=== PATIENT | male | born 1980 | race Caucasian/White ===

== ENCOUNTER 2019-06-22 08:24 | Emergency (ER) | payer OTHER, SELFPAY ==
--- NOTE | 2019-06-22 08:27 | XR_ITS ---
WS: [id number] XR knee LT 3V* 19897 REASON FOR EXAM: pain FINDINGS: The meniscal spaces are normal. The patella femoral articulation normal. The patella tibial space is normal. There is no fractures seen no soft tissue swelling noted. No unusual calcifications are noted. XR/XR knee LT 3V* [id number] IMPRESSION: Negative left knee.
[2019-06-22 08:32] VITALS: BP 155/93; PULSE 80; RESP 18; TEMP 36.5; O2SAT 99; BMI 24.3
--- NOTE | 2019-06-22 08:37 | ED_ITS ---
HPI - Extremity Injury (Lower) General: Chief Complaint: Extremity Injury, Lower Stated Complaint: LEFT KNEE PAIN Time Seen by Provider: 06/22/19 08:28 Source: patient Mode of arrival: ambulatory Limitations: no limitations History of Present Illness: HPI Narrative: Patient is a 39-year-old male who presents to ED today with complaints of left knee pain. Patient states approxi mately 2 weeks ago while at work his legs were stuck in the mud and he went to twist his body and his knee stayed put and he heard a pop . Patient states he has had pain since. He states today while at work he heard yet another pop now has increasing pain. He reports a surgery to that left knee 16 years ago for multiple ligamentous repair. MD complaint: knee injury Onset (ago): day(s) Injury: Left: knee Place: work Severity: moderate Exacerbating factors: weight bearing and movement Associated symptoms: Reports no associated symptoms Other symptoms: none Review of Systems Musc: Reports: joint pain; Denies: extremity pain, extremity swelling, joint swelling or limited range of motion Neuro: Denies: numbness in extremities, weakness in extremities or changes in sensation PFSH ED PFSH: Social History Smoking and tobacco status: current every day smoker Physical Exam Const: COMMON NORMALS: no apparent distress, average body habitus, oriented x3, no limitations, healthy appearing, alert and well nourished Extremity: COMMON NORMALS: full ROM, normal capillary refill, no joint enlargement, no clubbing, cyanosis or edema, no calf tenderness and no pedal edema OTHER: TTP of medial joint line of L knee; full ROM; no swelling/effusion noted; NV intact; no redness/warmth Neuro: COMMON NORMALS: oriented x3 SENSORIUM/ORIENTATION: Yes alert Course Vital Signs: Vital signs: Vital Signs Temperature 97.7 F 06/22/19 08:32 Pulse Rate 80 06/22/19 08:32 Respiratory Rate 18 06/22/19 08:50 Blood Pressure 155/93 06/22/19 08:32 Pulse Oximetry 99 06/22/19 08:32 MDM - Extremity Injury (Lower) Imaging Data^: XR L knee: Radiologist's impression: [address] [address] XRay Report Signed Patient: Boby Arce Unit #: [id number] : 1980 Age/Sex: 39 / M ADM Date: 06/22/19 Loc: ER Room/Bed: Attending Dr: Ordering Provider/Ordering MD: Charlie Johns MD Date of Service: 06/22/19 Procedure(s): XR knee LT 3V* 83995 Accession Number(s): [id number] Report Number: [id number] WS: [id number] XR knee LT 3V* [id number] REASON FOR EXAM: pain FINDINGS: The meniscal spaces are normal. The patella femoral articulation normal. The patella tibial space is normal. There is no fractures seen no soft tissue swelling noted. No unusual calcifications are noted. XR/XR knee LT 3V* [id number] IMPRESSION: Negative left knee. Dictated By: Sharan Mckinnon DO Signed By: Sharan Mckinnon DO Signed Date/Time: 06/22/19855 DD/ 4 Discharge Plan Discharge Patient Disposition: Home, Self-Care Clinical Impression: Left knee sprain Qualifiers: Encounter type: initial encounter Involved ligament of knee: medial collateral ligament Qualified Code(s): S83.412A - Sprain of medial collateral ligament of left knee, initial encounter Condition: Stable Prescriptions: New hydrocodone-acetaminophen 5-325 mg tablet 1 tab PO Q6H PRN (Reason: pain) Qty: 14 RF: 0 diclofenac sodium 50 mg tablet,delayed release (DR/EC) 50 mg PO Q12H PRN (Reason: pain) Qty: 20 RF: 0 Discharge Orders: Discharge Order (Routine); Ordered 06/22/19 Ordered By: Loan Barba Referrals: Coy Ordoñez FNP [Primary Care Provider] - Discharge Diet: Usual diet Discharge Activity: Limit activity as instructed Activity Restrictions/Additional Instructions: Follow up with Worker's Comp as instructed. Coding Level of Care Code ED Privacy Director for Chg Fwd Exam Expanded Problem Focused
[2019-06-22 08:50] VITALS: RESP 18
--- NOTE | 2019-06-22 08:54 | PC.NURSE ---
Nurse offered pt an ice pack. Pt sitting up in chair and stated, No thank you. I'm okay. No needs at this time.
[2019-06-22 09:24] VITALS: BP 137/98; PULSE 85; RESP 17; O2SAT 98
== END 2019-06-22 09:25 | disposition home or self-care (01) ==
PROVIDERS: Emergency Provider Physician Assistant; Family Provider Nurse Practitioner Family; PCP Nurse Practitioner Family
DX: S83.92XA Sprain of unspecified site of left knee, initial encounter (principal); X50.1XXA Overexertion from prolonged static or awkward postures, initial encounter; Y92.89 Other specified places as the place of occurrence of the external cause; F17.200 Nicotine dependence, unspecified, uncomplicated; Z98.890 Other specified postprocedural states
CPT/HCPCS: 73562; 99281; 99282